=== PATIENT | male | born 1940 | race Caucasian/White ===

== ENCOUNTER 2017-04-07 13:44 | Inpatient (IN) ==
[2017-04-07 14:24] LABS: Bilirubin,Urine Negative (Negative); Blood,Urine Negative (Negative); Clarity,Urine Clear (Clear); Color,Urine Yellow (Yellow); Glucose,Urine (UA) Normal (Normal); Ketones,Urine Negative (Negative); Leukocyte Esterase,Urine Small (Negative); Nitrite,Urine Negative (Negative); Protein,Urine Negative (Neg-Trace); Specific Gravity,Urine 1.019 (1.010-1.025); Urobilinogen,Urine Normal (Normal)
[2017-04-07 14:27] LABS: Bacteria,Urine None Seen per hpf (None-Few); Hyaline Casts,Urine None Seen per lpf (None-Few); RBC,Urine 0-3 per hpf (0-3); Squamous Epithelial Cell,Urine Few per lpf (None-Few)
[2017-04-07] MEDS ORDERED: 0.9 % Sodium Chloride 1,000 ML IVC ONE ×2 (14:53→16:41)
[2017-04-07 15:05] LABS: Basophils # 0.1 K/mcL (0.0-0.2); Basophils % 0.5 %; Eosinophils # 0.2 K/mcL (0.0-0.6); Eosinophils % 1.6 %; Hematocrit 42.8 % (37.5-50.1); Hemoglobin 13.9 g/dL (12.9-16.9); Immature Platelets 3.5 % (1.1-6.1); Lymphocytes # 1.2 K/mcL (0.6-4.6); Lymphocytes % 13.1 %; Mean Corpuscular HGB Conc 32.5 g/dL (31.6-35.5); Mean Corpuscular Hemoglobin 29.5 pg (28.0-33.3); Mean Corpuscular Volume 90.9 fL (83.0-100.0); Mean Platelet Volume 9.9 fL (9.4-12.4); Monocytes % 10.2 %; Neutrophils # 6.7 K/mcL (1.6-8.9); Platelet Count 324 K/mcL (140-400); Red Blood Count 4.71 M/mcL (4.19-5.50); Red Cell Distribution Width 13.5 % (11.5-14.5); Segmented Neutrophils % 72.6 %
[2017-04-07 15:20] LABS: Alanine Aminotransferase 55 Units/L (7-52); Albumin 4.1 g/dL (3.5-5.7); Albumin/Globulin Ratio 1.5 (1.1-2.2); Alkaline Phosphatase 91 Units/L (34-104); Aspartate Amino Transferase 52 Units/L (13-39); BUN/Creatinine Ratio 16 (6-26); Bilirubin,Direct 0.1 mg/dL (0.0-0.2); Bilirubin,Indirect 0.3 mg/dL (0.0-1.2); Bilirubin,Total 0.4 mg/dL (0.3-1.0); Blood Urea Nitrogen 15 mg/dL (8-23); Calcium 9.9 mg/dL (8.6-10.3); Carbon Dioxide 24 mEq/L (23-29); Chloride 105 mEq/L (98-107); Globulin 2.8 g/dL (2.4-3.5); Glucose 109 mg/dL (70-105); Lipase 35 Units/L (11-82); Osmolality,Calculated 283 (280-300); Potassium 4.4 mEq/L (3.5-5.1); Sodium 136 mEq/L (136-145); Total Protein 6.9 g/dL (6.4-8.9); eGFR For African Americans > 60 (> 60); eGFR For Non-African Americans > 60 (> 60)
--- NOTE | 2017-04-07 15:22 | Emergency Department Note ---
START Narrative - START START: I examined this patient and my medical decision-making was reviewed with the emergency medicine resident. I agree with the documented findings, disposition and treatment plan as described except to the extent set forth below. Patient seen with emergency medicine resident Dr. NICHOLE CHRISTIAN, Please see a copy of his note for details of the H&P, ED evaluation, management and disposition. I have independently evaluated the patient and confirmed appropriate portions of the history and physical exam. Briefly: 76-year-old male history of intraparenchymal renal mass being treated for pyelonephritis was initially on Bactrim cultures came back that it was resistant to what they tried Macrobid but his symptoms are worsening with chills and malaise. Patient will be worked up for OUTPT FAILURE pyelonephritis IV fluids IV antibiotics admission anticipated. Disposition pending
--- NOTE | 2017-04-07 15:25 | Emergency Department Note ---
Disposition Clinical Impression: Pyelonephritis, Renal abscess Disposition: Admitted As Inpatient Condition: Fair Referrals: Carlos Trevino MD [Primary Care Provider] - Forms: ED Satisfaction Letter, Work/School Release Time of Disposition: 17:12 Abdominal Pain HPI - General Chief Complaint: ED Abdominal Pain Stated Complaint: ABD/R flank pain Time Seen by Provider: 04/07/17 15:24 Source: patient Mode of arrival: ambulatory Limitations: no limitations Nursing Notes Reviewed: Yes Vital Signs Reviewed: Yes - History of Present Illness HPI Narrative: 76-year-old male presents complaining of right flank pain. Patient was treated for a UTI with possible pyelonephritis one week ago, he had a CAT scan showed new 3.7 infrarenal abdominal aortic aneurysms nonruptured, and 3 cm right iliac artery aneurysm that were stable, patient also was found to have a small mass in his right kidney that was possible pyelonephritis, she was started initially on Bactrim that he took for 3 or 4 days he started feeling better then was switched to Macrobid as the Escherichia coli was sensitive to Macrobid but not Bactrim. Patient states that he has been having 7 out of 10 pain up to 8 out of 10 twinges of pain when he moves. When he takes a deep breath. Patient reports no hematemesis, hemoptysis, hematochezia. Patient denies hematuria but has had some dysuria and frequency. States his pain is currently a 0 out of 10 but is up to a 10 out of 10 if he moves Pt Subjective Complaint: abdominal pain Onset (ago): day(s) Consistency: intermittent Location: R flank Pain Severity: none, now resolved Pain Scale: 0 Quality: cramping Radiation: none Improves with: nothing Worsens with: nothing Associated symptoms: Reports: nausea, fever, chills. Denies: vomiting, diarrhea , constipation, dysuria, hematemesis, hematuria - Related Data Allergies Allergy/AdvReac Type Severity Reaction Status Date / Time quinine [From Qualaquin] AdvReac Muscle Pain Verified 04/07/17 14:05 All systems ED: reviewed and negative except as stated. Review of Systems: As Per HPI Constitutional: Reports: as per HPI, fever, chills Eyes: Denies: eye pain ENT ED: Denies: ear pain Cardiovascular: Denies: chest pain, palpitations Respiratory: Denies: cough, dyspnea Gastrointestinal: Reports: abdominal pain, nausea. Denies: hematemesis, melena Genitourinary: Reports: as per HPI, urgency, dysuria. Denies: frequency, hematuria Musculoskeletal: Denies: back pain Integumentary: Denies: rash Neurological: Denies: headache Abdominal Pain PMH - Past Medical History Medical history: Reports: COPD, hyperlipidemia, hypertension, other Male Surgical History: Reports: Adenoidectomy, herniorrhaphy, prostatectomy, Tonsillectomy Psychiatric history: Reports: no psych history - Social History Smoking status: Never smoker Alcohol use: Reports: heavy Drug use: Reports: none Physical Exam Constitutional: Borderline tachycardia, elderly male in no acute distress Eyes: PERRLA, sclera anicteric ENT & Mouth: MMM Neck: normal inspection, neck is supple Resp: CTA bilaterally, no resp distress CV: RRR, rate of 100 no m/g/r GI: normal inspection, soft, tenderness to palpation right lower quadrant. no guarding or rigidity Back: Right CVA tenderness. Neuro: A&O3, CNII-XII grossly intact, ZELAYA Skin: on limited exam, skin intact with no rashes or lesions - General Limitations: no limitations General appearance: alert Course Course Narrative: 76-year-old male with right upper quadrant pain and right flank . The patient has worsening symptoms, [place] a week I do think that it is indicated to repeat a CT scan, as worsening pain there is questionable mass, also questionable stable abdominal aortic aneurysm and right iliac aneurysm - Reevaluation(s) Reevaluation #1: Patient is evidence of right-sided renal cyst, with stable vital signs, but is basically failed Macrobid and Bactrim, has a worsening pain, he gets indicated at this time to start him on ceftriaxone, Escherichia coli pyelonephritis admitted to Dr Augustine Time: 17:11 Vital Signs Temperature 98.4 F 04/07/17 14:00 Pulse Rate 100 04/07/17 14:00 Respiratory Rate 18 04/07/17 14:00 Blood Pressure 112/71 04/07/17 14:00 O2 Sat by Pulse Oximetry 99 04/07/17 14:00 Temperature 98.4 F 04/07/17 14:00 Pulse Rate 95 04/07/17 15:31 Respiratory Rate 18 04/07/17 15:31 Blood Pressure 121/75 04/07/17 15:31 O2 Sat by Pulse Oximetry 93 04/07/17 15:31 Oxygen Delivery Oxygen Delivery Room Air Abdominal Pain - Differential Diagnosis Differential Diagnosis: Likely: abdominal pain non-specific, acute appendicitis , constipation, diverticulitis, diverticulosis - Medical Records Medical records reviewed: Yes I reviewed the patient's medical records. - Lab Data Lab results reviewed: Yes I reviewed the patient's lab results. Result diagrams: 04/07/17 14:55 04/07/17 14:55 Lab Results 04/07/17 04/07/17 04/07/17 Range/Units 14:11 14:55 14:55 WBC 9.3 (4.3-11.1) K/mcL RBC 4.71 (4.19-5.50) M/mcL Hgb 13.9 (12.9-16.9) g/dL Hct 42.8 (37.5-50.1) % MCV 90.9 (83.0-100.0) fL MCH 29.5 (28.0-33.3) pg MCHC 32.5 (31.6-35.5) g/dL RDW 13.5 (11.5-14.5) % Plt Count 324 (140-400) K/mcL MPV 9.9 (9.4-12.4) fL Immature Gran % 2.0 (0-4) % Seg Neutrophils % 72.6 % Lymphocytes % 13.1 % Monocytes % 10.2 % Eosinophils % 1.6 % Basophils % 0.5 % Neutrophils # 6.7 (1.6-8.9) K/mcL Lymphocytes # 1.2 (0.6-4.6) K/mcL Monocytes # 1.0 (0.0-1.3) K/mcL Eosinophils # 0.2 (0.0-0.6) K/mcL Basophils # 0.1 (0.0-0.2) K/mcL Immature Plt Fraction 3.5 (1.1-6.1) % Sodium 136 (136-145) mEq/L Potassium 4.4 (3.5-5.1) mEq/L Chloride 105 (98-107) mEq/L Carbon Dioxide 24 (23-29) mEq/L BUN 15 (8-23) mg/dL Creatinine 0.93 (0.70-1.30) mg/dL Est GFR ( Amer) > 60 (> 60) Est GFR (Non-Af Amer) > 60 (> 60) BUN/Creatinine Ratio 16 (6-26) Glucose 109 H (70-105) mg/dL Calculated Osmolality 283 (280-300) Calcium 9.9 (8.6-10.3) mg/dL Total Bilirubin 0.4 (0.3-1.0) mg/dL Direct Bilirubin 0.1 (0.0-0.2) mg/dL Indirect Bilirubin 0.3 (0.0-1.2) mg/dL AST 52 H (13-39) Units/L ALT 55 H (7-52) Units/L Alkaline Phosphatase 91 (34-104) Units/L Serum Total Protein 6.9 (6.4-8.9) g/dL Albumin 4.1 (3.5-5.7) g/dL Globulin 2.8 (2.4-3.5) g/dL Albumin/Globulin Ratio 1.5 (1.1-2.2) Lipase 35 (11-82) Units/L Urine Color Yellow (Yellow) Urine Clarity Clear (Clear) Urine pH 6.0 (5.0-8.0) pH Units Ur Specific [place] 1.019 (1.010-1.025) Urine Protein Negative (Neg-Trace) mg/dL Urine Glucose (UA) Normal (Normal) mg/dL Urine Ketones Negative (Negative) mg/dL Urine Blood Negative (Negative) Urine Nitrite Negative (Negative) Urine Bilirubin Negative (Negative) Urine Urobilinogen Normal (Normal) mg/dL Ur Leukocyte Esterase Small H (Negative) Urine Microscopic RBC 0-3 (0-3) per hpf Urine Microscopic WBC 3-5 H (0-3) per hpf Ur Squamous Epith Cells Few (None-Few) per lpf Urine Bacteria None Seen (None-Few) per hpf Hyaline Casts None Seen (None-Few) per lpf Ur Culture Indicated? YES A (NO) - Radiology Data Radiology results reviewed: Yes I reviewed the patient's radiology results. Abdomen/Pelvis CT 04/07/17 15:01 IMPRESSION: Early right renal abscess associated with ascending urinary tract infection. Eccentric abdominal aortic and right common iliac artery aneurysms. RECOMMENDATIONS: Consider nonemergent vascular surgery evaluation due to the slightly unusual morphology of the aneurysms. D/ / 04/07/2017 16:13:04 Julian Garcia MD / aman Interpreting Provider: Julian Garcia MD
[2017-04-07] MEDS ORDERED: Ketorolac 15 MG/ML VIAL IVP ONE (17:13)
[2017-04-07] MEDS ORDERED: Ondansetron 4 MG/2 ML VIAL IVP ONE (17:13)
[2017-04-07] MEDS ORDERED: cefTRIAXone 2,000 MG in Water for inj. (sterile) 20 ML 20 ML IVP ONE (18:00)
[2017-04-07] MEDS ORDERED: Naloxone 0.4 MG/ML INJ IVP PRN (20:46)
[2017-04-07] MEDS ORDERED: Ipratropium/Albuterol Neb 3 ML IH PRN (20:50)
--- NOTE | 2017-04-07 21:45 | Internal Med History&Physical ---
Date of Encounter: 04/07/17 Time of Encounter: 19:00 Assessment and Plan (1) HTN (hypertension) Current visit: Yes Status: Acute Closely monitor BP, assume home meds after verification. Qualifiers: Hypertension type: essential hypertension Qualified Code(s): I10 - Essential (primary) hypertension (2) COPD (chronic obstructive pulmonary disease) Current visit: Yes Status: Acute No signs of exacerbation. Cont symbicort, duoneb PRN Qualifiers: COPD type: emphysema Emphysema type: unspecified Qualified Code(s): J43.9 - Emphysema, unspecified (3) DVT prophylaxis Current visit: Yes Status: Acute Heparin SC (4) Pyelonephritis Current visit: Yes Status: Acute Pt has Rt flank pain with CVAT positive, consider Rt pyelonephritis. - Cont rocephin IV, f/u urine culture. (5) Renal abscess Current visit: Yes Status: Acute Cont abx, urology consult on board, recommedation will be followed. (6) Iliac artery aneurysm Current visit: Yes Status: Acute Incidentally found by CT, non-urgent vascular consult or outpatient vascular f/u , defer to dayshift for further management. Internal Medicine - H&P: HPI Chief complaint: Abd pain Admitted From: Home Plans for Post Hospital Care: Home History of present illness: Mr. Lux is a 76 year old male with Hx of COPD, gout, HTN, HLD, prostate Cancer s/p prostatectomy present to ER for abd pain for 8 days. Pt said pain located on rt abd, with low fever 100.2F. He was considered apendicitis earlier but CT abd ruled it out but found UTI. He was treated with po Abx but the right flank pain is getting worse today. Pt denies nausea or diarrhea. He denies dysuria, burning, or urgency for urination. In ER, CT abd again shows UTI and finds early right renal abscess. Urology was consulted by ER, recommend admit pt , treat with rocephin, and urology will follow up. Past Med Surg Social Fam HX - Past Medical History Medical history: COPD, hyperlipidemia, hypertension, other Psychiatric history: no psych history - Past Surgical History Surgical History: prostatectomy - Social History Smoking Status: Current every day smoker Smokeless Tobacco Status: No Alcohol use: heavy Drug use: none - Family History Father Living Status: Age at : 58 Cause of : cardiac arrest Hx Family Cardiac Disorders: Yes Hx Family Respiratory Disorders: Yes Hx Family Cancer: No Hx Family GI Disorders: No Hx Family Genitourinary Disorders: No Hx Family Endocrine Disorder: No Hx Family Musculoskeletal Disorders: No Hx Family Neuromuscular Disorders: No Hx Family Neurologic Disorders: No Hx Family HEENT Disorders: No Hx Family Autoimmune Disorders: No Hx Family Reproductive Disorders: No Hx Family Psychosocial Disorders: No Hx Family Medical Disorders: No Internal Medicine - H&P: Meds 3 Allergy/AdvReac Type Severity Reaction Status Date / Time quinine [From Qualaquin] AdvReac Muscle Pain Verified 04/07/17 14:05 All Systems PM: A 10-system review of systems was performed and is negative for pertinent findings except as documented above in the HPI. - Constitutional Constitutional: no chills, no fever(s), no night sweats - EENT Eyes: no change in vision, no discharge, no pain, no photophobia Ears: no ear discharge, no ear pain, no tinnitus Nose, mouth and throat: no dysphagia, no nasal discharge, no neck pain, no sore throat - Cardiovascular Cardiovascular ROS IM: no chest pain, no diaphoresis, no dyspnea, no lightheadedness, no palpitations, no syncope - Respiratory Respiratory: no cough, no dyspnea, no wheezing, no excessive phlegm production - Gastrointestinal Gastrointestinal: no abdominal pain, no diarrhea, no hematemesis, no hematochezia, no melena, no nausea, no vomiting - Musculoskeletal Musculoskeletal ROS IM: no numbness, no tingling - Integumentary Integumentary IM: no rash, no unusual bruising - Neurological Neurological ROS: no confusion, no convulsions, no focal weakness, no numbness, no tingling, no tremor(s) - Hematologic/Lymphatic Hematologic/Lymphatic: no easy bruising - Constitutional Vitals: Temp Pulse Resp BP Pulse Ox 98.3 F 90 14 136/82 95 04/07/17 19:49 04/07/17 19:49 04/07/17 19:49 04/07/17 19:49 04/07/17 19:49 General appearance: Present: A&O X 3, no acute distress, answers questions appropriately - Head Head exam: Present: atraumatic, normocephalic - Eye Eye exam: Present: PERRL, conjuntiva pink, sclera anicteric Pupils: Present: PERRL - Neck Neck exam general surgery: Present: supple, trachea midline. Absent: lymphadenopathy - Respiratory Respiratory exam: Present: CTAB. Absent: accessory muscle use, rales, rhonchi, wheezes - Cardiovascular Cardiovascular exam: Present: RRR, +S1, +S2. Absent: diastolic murmur, gallop, rubs, systolic murmur - GI/Abdominal GI/Abdominal exam: Present: normal bowel sounds, soft, no peritoneal signs. Absent: distended, tenderness Additional comments: CVAT positive on right side - Extremities Exam Extremities exam: Present: warm, radial pulses palpable and symmetrical. Absent : calf tenderness, cyanotic, pedal edema - Neurological Exam Neurological exam: Present: CN II-XII intact, oriented X3, no focal deficits. Absent: pronater drift, facial droop, speech deficit - Skin Skin exam: Present: dry, intact Internal Med - H&P Results - Labs CBC & Chem 7: 04/07/17 14:55 04/07/17 14:55
[2017-04-07] MEDS ORDERED: Budesonide/Formoterol 160/4.5 MDI IH SCH (22:00)
[2017-04-08] MEDS: Acetaminophen 325 MG TABLET PO PRN ×3 (01:19→22:27)
[2017-04-08] MEDS ORDERED: Saline Nasal Spray 44 ML BOTTLE NS PRN (01:28)
[2017-04-08] MEDS: *HR* Heparin 5,000 UNIT/ML VIAL SQ SCH ×2 (06:21→17:21)
[2017-04-08 07:01] LABS: Basophils # 0.1 K/mcL (0.0-0.2); Eosinophils # 0.3 K/mcL (0.0-0.6); Eosinophils % 3.7 %; Hemoglobin 12.5 g/dL (12.9-16.9); Immature Granulocytes % 2.3 % (0-4); Lymphocytes # 1.7 K/mcL (0.6-4.6); Lymphocytes % 21.1 %; Mean Corpuscular HGB Conc 32.1 g/dL (31.6-35.5); Mean Corpuscular Hemoglobin 29.9 pg (28.0-33.3); Mean Corpuscular Volume 93.3 fL (83.0-100.0); Mean Platelet Volume 10.3 fL (9.4-12.4); Monocytes # 1.1 K/mcL (0.0-1.3); Monocytes % 13.5 %; Neutrophils # 4.8 K/mcL (1.6-8.9); Platelet Count 289 K/mcL (140-400); Red Blood Count 4.18 M/mcL (4.19-5.50); Red Cell Distribution Width 13.6 % (11.5-14.5); Segmented Neutrophils % 58.4 %
[2017-04-08 07:07] LABS: INR 1.1; Prothrombin Time 11.8 Seconds (9.4-12.1)
[2017-04-08 07:16] LABS: BUN/Creatinine Ratio 13 (6-26); Blood Urea Nitrogen 11 mg/dL (8-23); Carbon Dioxide 24 mEq/L (23-29); Chloride 108 mEq/L (98-107); Glucose 89 mg/dL (70-105); Magnesium 2.1 mg/dL (1.6-2.6); Osmolality,Calculated 287 (280-300); Potassium 4.2 mEq/L (3.5-5.1); Sodium 139 mEq/L (136-145); eGFR For African Americans > 60 (> 60); eGFR For Non-African Americans > 60 (> 60)
--- NOTE | 2017-04-08 07:21 | Urology - Consult Note ---
Date of Encounter: 04/08/17 Time of Encounter: 07:17 - Assessment and Plan (1) Renal abscess Current Visit: Yes Status: Acute Assessment and plan: 76-year-old man with a history of a urinary tract infection and a right renal abscess. I reviewed the CT scan. This abscess is fairly small. I do not think it will be amenable to a drain placement, but interventional radiology may be able to aspirate the abscess to assist with repeat cultures. An INR was normal. I discussed the procedure with the patient. I also recommend proceeding with an infectious disease consultation to determine length of time for IV antibiotic treatment. I answered all his questions. Urology will follow along. Urology CN:HPI Consult date: 04/08/17 Reason for consult Urology: Other (Right renal abscess) History of present illness: 76-year-old man was admitted for a urinary tract infection and right flank pain. In workup he was noted to have a right renal abscess. He had been on oral antibiotic, but has been changed over to IV antibiotics. His flank pain started in the last 2-3 days. It is located on the right side. It radiates anteriorly. He describes the pain as being sharp. He has a history of prostate cancer and is status post robotic-assisted radical prostatectomy from 2016. His PSA in March 2017 was undetectable. He still has some urinary incontinence. Past Med Surg Social Fam HX - Past Medical History Medical history: COPD, hyperlipidemia, hypertension, other Psychiatric history: no psych history - Past Surgical History Surgical History: prostatectomy - Social History Smoking Status: Current every day smoker Smokeless Tobacco Status: No Alcohol use: heavy Drug use: none - Family History Father Living Status: Age at : 58 Cause of : cardiac arrest Hx Family Cardiac Disorders: Yes Hx Family Respiratory Disorders: Yes Hx Family Cancer: No Hx Family GI Disorders: No Hx Family Genitourinary Disorders: No Hx Family Endocrine Disorder: No Hx Family Musculoskeletal Disorders: No Hx Family Neuromuscular Disorders: No Hx Family Neurologic Disorders: No Hx Family HEENT Disorders: No Hx Family Autoimmune Disorders: No Hx Family Reproductive Disorders: No Hx Family Psychosocial Disorders: No Hx Family Medical Disorders: No Medications and Allergies Allopurinol [Zyloprim 300 MG] 300 mg PO DAILY 04/07/17 [History] Amlodipine Besylate 2.5 mg PO DAILY 04/07/17 [History] Budesonide/Formoterol 160/4.5 [Symbicort 160/4.5] 2 puff IH BIDR 04/07/17 [ History] Losartan/Hydrochlorothiazide [Losartan-Hctz 100-12.5 mg Tab] 04/07/17 [History] Ranitidine HCl [Heartburn Relief] 150 mg PO DAILY 04/07/17 [History] Simvastatin [Zocor] 20 mg PO HS 04/07/17 [History] Zolpidem [Ambien] 5 mg PO HS 04/07/17 [History] 3 Allergy/AdvReac Type Severity Reaction Status Date / Time quinine [From Qualaquin] AdvReac Muscle Pain Verified 04/07/17 14:05 Review of Systems - Constitutional no chills, no fever(s) - EENT Nose, mouth and throat: no dizziness - Cardiovascular no chest pain - Respiratory no dyspnea - Gastrointestinal no nausea, no vomiting - Genitourinary flank pain, no hematuria - Musculoskeletal no back pain - Integumentary no erythema, no rash - Neurological no weakness - Psychiatric no suicidal ideation - Hematologic/Lymphatic no easy bleeding - Allergic/Immunologic no wheezing Exam Initial Vital Signs Temp Pulse Resp BP Pulse Ox 98.4 F 100 18 112/71 99 04/07/17 14:00 04/07/17 14:00 04/07/17 14:00 04/07/17 14:00 04/07/17 14:00 - General physical appearance Present: well developed, well nourished, no distress - Eyes Absent: icteric - ENT Present: normal nares - Neck Present: trachea midline - Respiratory Present: normal respiratory effort - Cardiovascular Cardiovascular exam IM: RRR - Abdomen Abdomen: Present: soft - Genitourinary normal penis with no external lesions - Integumentary Present: no rash - Neurologic Present: normal coordination - Musculoskeletal Present: other (No edema) Urology Results - Labs 04/08/17 05:42 04/08/17 05:42 Abnormal lab results RBC 4.18 M/mcL (4.19-5.50) L 04/08/17 05:42 Hgb 12.5 g/dL (12.9-16.9) L 04/08/17 05:42 Chloride 108 mEq/L (98-107) H 04/08/17 05:42 AST 52 Units/L (13-39) H 04/07/17 14:55 ALT 55 Units/L (7-52) H 04/07/17 14:55 Ur Leukocyte Esterase Small (Negative) H 04/07/17 14:11 Urine Microscopic WBC 3-5 per hpf (0-3) H 04/07/17 14:11 Ur Culture Indicated? YES (NO) A 04/07/17 14:11 Diabetes panel 04/08/17 Range/Units 05:42 Sodium 139 (136-145) mEq/L Potassium 4.2 (3.5-5.1) mEq/L Chloride 108 H (98-107) mEq/L Carbon Dioxide 24 (23-29) mEq/L BUN 11 (8-23) mg/dL Creatinine 0.83 (0.70-1.30) mg/dL Glucose 89 (70-105) mg/dL Calcium 9.0 (8.6-10.3) mg/dL Calcium panel 04/08/17 Range/Units 05:42 Calcium 9.0 (8.6-10.3) mg/dL Pituitary panel 04/08/17 Range/Units 05:42 Sodium 139 (136-145) mEq/L Potassium 4.2 (3.5-5.1) mEq/L Chloride 108 H (98-107) mEq/L Carbon Dioxide 24 (23-29) mEq/L BUN 11 (8-23) mg/dL Creatinine 0.83 (0.70-1.30) mg/dL Glucose 89 (70-105) mg/dL Calcium 9.0 (8.6-10.3) mg/dL Adrenal panel 04/08/17 Range/Units 05:42 Sodium 139 (136-145) mEq/L Potassium 4.2 (3.5-5.1) mEq/L Chloride 108 H (98-107) mEq/L Carbon Dioxide 24 (23-29) mEq/L BUN 11 (8-23) mg/dL Creatinine 0.83 (0.70-1.30) mg/dL Glucose 89 (70-105) mg/dL Calcium 9.0 (8.6-10.3) mg/dL All other labs normal. - Imaging CT scan - abdomen: report reviewed, image reviewed CT scan - pelvis: report reviewed, image reviewed Consult Discharge Plan - Plan Referrals: Carlos Trevino MD [Primary Care Provider] -
[2017-04-08] MEDS: Budesonide/Formoterol 160/4.5 MDI IH SCH ×2 (07:48→20:45)
--- NOTE | 2017-04-08 09:10 | IR Consult Note ---
Date of Encounter: 04/08/17 Time of Encounter: 09:06 Assessment and Plan (1) Renal abscess Current Visit: Yes Status: Acute 76 yo gentleman with recent UTI and a tiny renal abscess. Personal review of recent CT exams demonstrates a <1 cm hypoenchancing region in the right kidney which could represent an early abscess, and is unchaged between 04/02 and 04/07. Given its small size, I would recommend medial management at this point, particularly as the patient was recently switched to IV abx. If symptoms worsen or the patient develops signs of sepsis, aspiration could possibly be attempted. Thank you for the consult. Consult date: 04/08/17 Ordering Clinician: Shan Osborn Physicians: Gregg Sears MD History of present illness: 76 yo gentleman with hx prostate cancer s/p prostatectomy, who was recently diagnosed with a UTI and started on oral abx. He p/w 2-3 days increasing right flank pain. Consult Comment: Thank you for the consult. Call [facility] with questions or concerns. Past Med Surg Social Fam HX - Past Medical History Medical history: COPD, hyperlipidemia, hypertension, other Psychiatric history: no psych history - Past Surgical History Surgical History: prostatectomy - Social History Smoking Status: Current every day smoker Smokeless Tobacco Status: No Alcohol use: heavy Drug use: none - Family History Father Living Status: Age at : 58 Cause of : cardiac arrest Hx Family Cardiac Disorders: Yes Hx Family Respiratory Disorders: Yes Hx Family Cancer: No Hx Family GI Disorders: No Hx Family Genitourinary Disorders: No Hx Family Endocrine Disorder: No Hx Family Musculoskeletal Disorders: No Hx Family Neuromuscular Disorders: No Hx Family Neurologic Disorders: No Hx Family HEENT Disorders: No Hx Family Autoimmune Disorders: No Hx Family Reproductive Disorders: No Hx Family Psychosocial Disorders: No Hx Family Medical Disorders: No Medications and Allergies Allopurinol [Zyloprim 300 MG] 300 mg PO DAILY 04/07/17 [History] Amlodipine Besylate 2.5 mg PO DAILY 04/07/17 [History] Budesonide/Formoterol 160/4.5 [Symbicort 160/4.5] 2 puff IH BIDR 04/07/17 [ History] Ranitidine HCl [Heartburn Relief] 150 mg PO DAILY 04/07/17 [History] Simvastatin [Zocor] 20 mg PO HS 04/07/17 [History] Zolpidem [Ambien] 5 mg PO HS 04/07/17 [History] Losartan Potassium [Cozaar] 100 mg PO DAILY 04/08/17 [History] Nitrofurantoin Monohyd/M-Cryst [Macrobid 100 mg Capsule] 100 mg PO BID 04/08/17 [History] 3 Allergy/AdvReac Type Severity Reaction Status Date / Time quinine [From Qualaquin] AdvReac Muscle Pain Verified 04/07/17 14:05 Exam Vital Signs, Last 4 Hours Resp Pulse Ox 04/08/17 07:49 16 95 Results Reviewed 04/08/17 05:42 04/08/17 05:42 Lab Results 04/08/17 04/08/17 04/08/17 05:42 05:42 05:42 WBC 8.2 RBC 4.18 L Hgb 12.5 L Hct 39.0 MCV 93.3 MCH 29.9 MCHC 32.1 RDW 13.6 Plt Count 289 MPV 10.3 Neutrophils # 4.8 Lymphocytes # 1.7 Monocytes # 1.1 Eosinophils # 0.3 Basophils # 0.1 PT 11.8 INR 1.1 Sodium 139 Potassium 4.2 Chloride 108 H Carbon Dioxide 24 BUN 11 Creatinine 0.83 Est GFR ( Amer) > 60 Est GFR (Non-Af Amer) > 60 BUN/Creatinine Ratio 13 Glucose 89 Calcium 9.0 Magnesium 2.1 Consult Discharge Plan - Plan Referrals: Carlos Trevino MD [Primary Care Provider] -
[2017-04-08] MEDS: amLODIPine 5 MG TABLET PO SCH (09:38)
--- NOTE | 2017-04-08 14:00 | Infectious Disease Consult ---
Date of Encounter: 04/08/17 Time of Encounter: 13:55 Assessment and Plan (1) Renal abscess Status: Acute Assessment and plan: Location: Right kidney. Causative organism unclear, but likely E. coli given the recent urine culture results. Urinalysis positive for pyuria, but no bacteria. Urine culture obtained 04/02/[address] scan completed 04/07/16 showed progression of the right renal collection. IR consulted, but due to the size of the abscess, no drainage is indicated. Urology consulted and following. Continue Rocephin 2 grams IV daily. Duration of treatment depends on the clinical picture, but likely 2-4 weeks. We will continue IV antibiotics until the patient is seen in the office and we will repeat a CT scan and will switch to PO Antibiotics at that time if the abscess is resolved. Consult VAT for EPIV placement. Will need weekly CBC, BUN/Cr. Will need weekly EPIV care. Follow up with ID 04/24/17 at 0900. (2) UTI (urinary tract infection) Status: Acute Assessment and plan: Causative organism E. coli. CT scan shows bilateral perinephric stranding and findings consistent with ascending UTI. Continue antibiotics as above. Qualifiers: Qualified Code(s): N10 - Acute pyelonephritis (3) HTN (hypertension) Status: Chronic Qualifiers: Qualified Code(s): I10 - Essential (primary) hypertension (4) COPD (chronic obstructive pulmonary disease) Status: Acute Qualifiers: Qualified Code(s): J43.9 - Emphysema, unspecified Infectious Disease HPI - Data of Consult Patient: new to practice Consult date: 04/08/17 Requesting Physician: Gregg Sears MD Primary Care Provider: Carlos Trevino MD - Consult Narrative Reason for consult: Renal abscess History of present illness: Mr. Lux is a 76 year old male past medical history of COPD, hyperlipidemia, hypertension, and prostate cancer status post prostatectomy in 2016. The patient was admitted to the hospital where he 19th for pyelonephritis and renal abscess. We are consulted April 08 for antibiotic recommendations for renal abscess. , The patient is a 76-year-old male with past medical history as stated above. The patient states that about a week and a half ago he started to experience increasing right lower quadrant abdominal pain. He was seen by his PCP and had a CT scan ordered that showed no enhancements in the mid right and left kidneys with indeterminate etiology. His urinalysis was positive so he was started on oral Bactrim. He states that he started to get a little bit better, but was contacted by his PCPs office and told that his urine culture grew out bacteria that was resistant to the Bactrim and he was started on Macrobid. He states that over the course of the next 48 hours his pain started to worsen and he came to the emergency department yesterday. Upon arrival to the ER, the patient was afebrile, but he was tachycardic. His white blood cell count was normal. Lactic acid and serum creatinine were normal. He had a repeat CT the abdomen that showed an early right renal abscess with an ascending UTI. Repeat urinalysis was obtained that showed a small amount of leukocyte esterase and 3- 5 white blood cells, but no bacteria. Urine culture is pending. Blood cultures were obtained 2 sets and are pending. The patient was started on IV Rocephin and admitted to the hospital for further evaluation. Since admission, the patient has remained afebrile and hemodynamically stable. His white blood cell count is normal. Urology was consulted and recommended interventional radiology to drain the abscess. I was consulted, but states that because the renal abscesses so small it is not indicated to drain. Currently, the patient is on IV Rocephin. We've been asked to evaluate and make further recommendations. My exam today, the patient dorsal history as stated above. He states since being in the hospital doesn't feel much better. He does report subjective fevers and chills and rigors. He denies any headache or neck pain. He denies any chest pain or shortness of breath. He does report a chronic cough due to COPD. He denies any nausea or vomiting or diarrhea. He reports pain is in the right lower quadrant with radiation around to the right flank that seems to be worse depending on his position and movement. He denies any dysuria or urinary frequency or hematuria. Doesn't have much of an appetite. He denies any oral thrush or skin lesions. The patient lives at home with his . The patient denies tobacco or illicit drug use. He states that he typically has cocktails before dinner every night. He is a retired rescue worker. He reports that he traveled out of the country in January when he took a cruise to [place]. CC: Gregg Sears MD Past Med Surg Social Fam HX - Past Medical History Attestation: Yes The following information was validated with the patient. Source: patient, old records reviewed, nursing notes reviewed Medical history: COPD, hyperlipidemia, hypertension, other Psychiatric history: no psych history - Past Surgical History Surgical History: herniorrhaphy, prostatectomy, other (Tonsillectomy/ adenoidectomy) - Social History Smoking Status: Former smoker Smokeless Tobacco Status: No Alcohol use: heavy Drug use: none Occupational status: retired Current living situation: Home, With Family Activity Level: Independent ambulation Recent Out of Country Travel Within the Last 8 Weeks: No Exposure or Possible Exposure to Illness During Travel: No - Family History Father Living Status: Age at : 58 Cause of : cardiac arrest Hx Family Cardiac Disorders: Yes Hx Family Respiratory Disorders: Yes Hx Family Cancer: No Hx Family GI Disorders: No Hx Family Genitourinary Disorders: No Hx Family Endocrine Disorder: No Hx Family Musculoskeletal Disorders: No Hx Family Neuromuscular Disorders: No Hx Family Neurologic Disorders: No Hx Family HEENT Disorders: No Hx Family Autoimmune Disorders: No Hx Family Reproductive Disorders: No Hx Family Psychosocial Disorders: No Hx Family Medical Disorders: No Infectious Disease-CN:Meds Allopurinol [Zyloprim 300 MG] 300 mg PO DAILY 04/07/17 [History] Amlodipine Besylate 2.5 mg PO DAILY 04/07/17 [History] Budesonide/Formoterol 160/4.5 [Symbicort 160/4.5] 2 puff IH BIDR 04/07/17 [ History] Ranitidine HCl [Heartburn Relief] 150 mg PO DAILY 04/07/17 [History] Simvastatin [Zocor] 20 mg PO HS 04/07/17 [History] Zolpidem [Ambien] 5 mg PO HS 04/07/17 [History] Losartan Potassium [Cozaar] 100 mg PO DAILY 04/08/17 [History] Nitrofurantoin Monohyd/M-Cryst [Macrobid 100 mg Capsule] 100 mg PO BID 04/08/17 [History] 3 Allergy/AdvReac Type Severity Reaction Status Date / Time quinine [From Qualaquin] AdvReac Muscle Pain Verified 04/07/17 14:05 Exam - Constitutional Vitals: Temp Pulse Resp BP Pulse Ox 98.1 F 89 18 124/79 93 04/08/17 10:41 04/08/17 10:41 04/08/17 10:41 04/08/17 10:41 04/08/17 10:41 General appearance: average body habitus, cooperative, no acute distress - Head Head exam: Present: atraumatic, normal inspection, normocephalic - Eye Eye exam: Present: EOMI, normal appearance, PERRL Pupils: Present: normal accommodation - ENT ENT exam: Present: mucous membranes moist - Neck Neck exam: Present: normal inspection - Respiratory Respiratory exam: Present: CTAB. Absent: rales, respiratory distress, rhonchi, wheezes - Cardiovascular Cardiovascular exam: Present: RRR, +S1, +S2 - GI/Abdominal GI/Abdominal exam: Present: normal bowel sounds, soft, tenderness (RLQ). Absent : distended - Extremities Exam Extremities exam: Present: normal inspection. Absent: joint swelling, pedal edema, tenderness - Back Exam Back exam: Present: CVA tenderness (R). Absent: CVA tenderness (L) - Neurological Exam Neurological exam: Present: alert, oriented X3, no focal deficits - Psychiatric Psychiatric exam: Present: normal affect, normal mood - Skin Skin exam: Present: dry, intact, normal color, warm Infectious Disease CN: Results - Labs CBC & Chem 7: 04/08/17 05:42 04/08/17 05:42 Consult Discharge Plan - Plan Referrals: Carlos Trevino MD [Primary Care Provider] - Renée Butcher CNP [Advanced Practice Nurse] - 04/24/17 9:00 am - Attending Attestation I examined this patient and my medical decision-making was reviewed with the Resident Physician. I agree with the documented findings, disposition and treatment plan as described except to the extent set forth below. This is an addendum to original report dictated by Renée Butcher CNP. Please refer to Renée's note for full detail. Patient is a 76-year-old gentleman who was in the usual state of health came to [place] on 04/07/2017 complaining of right lower quadrant and flank pain. Apparently patient was seen by speech. On 04/02/2017 and was told he has pyelonephritis with Escherichia coli and was given Macrobid. Patient didn't clinically worse he had more pain on Saturday so he decided to come to the MRSA department for evaluation. In the ED patient had one SIRS criteria. Patient had no fever. Patient had a CT abdomen pelvis which revealed the right kidney abscess that was about 1.5 cm in diameter. Patient was evaluated by urology and they recommended IR to evaluate. Interventional radiology evaluated the patient and thought the abscess is too small to drain. Currently patient comfortable lying in bed. He was frustrated earlier because he apparently received too many mixed messages he tells me. But, appropriate pleasant and answered all my questions. His review of systems physical exam is really unremarkable right now. Assessment and plan: For the right kidney abscess that is about centimeter in diameter the causative organism is likely Escherichia coli based on previous urine culture. The Escherichia coli is resistant to 3 drugs including Bactrim, Zosyn and ampicillin and ampicillin sulbactam. We will treat the patient with Rocephin 2 g IV every [address] abdomen and pelvis in 2 weeks and based on that will decide if we'll continue with further IV antibiotics were switched to orals we'll stop altogether. Patient will need are powerglide. While on antibiotic he will need CBC and a BMP weekly I explained to the patient the possible adverse reactions of antibiotics Patient to take probiotics and he wanted a prescription for it.
--- NOTE | 2017-04-08 14:52 | Internal Med Progress Note ---
Date of Encounter: 04/08/17 Time of Encounter: 14:47 - Assessment and plan (1) Pyelonephritis Current Visit: Yes Status: Acute Assessment and plan: on ceftriaxone (2) Renal abscess Current Visit: Yes Status: Acute Assessment and plan: ID is on board, too small for IR to drain contineu IV ATB, follow up with ID (3) HTN (hypertension) Current Visit: Yes Status: Chronic Assessment and plan: continue home meds Qualifiers: Hypertension type: essential hypertension Qualified Code(s): I10 - Essential (primary) hypertension (4) COPD (chronic obstructive pulmonary disease) Current Visit: Yes Status: Acute Assessment and plan: COPD stable, contineu home meds, no wheezing Qualifiers: COPD type: emphysema Emphysema type: unspecified Qualified Code(s): J43.9 - Emphysema, unspecified (5) Iliac artery aneurysm Current Visit: Yes Status: Acute Assessment and plan: will consult vascular surgery, I spoke to Dr Maradiaga (6) UTI (urinary tract infection) Current Visit: Yes Status: Acute Qualifiers: Urinary tract infection type: acute pyelonephritis Qualified Code(s): N10 - Acute pyelonephritis - Time Spent With Patient 25 - 35 minutes - Subjective Interval history: Mr. Lux is a 76 year old male with Hx of COPD, gout, HTN, HLD, prostate Cancer s/p prostatectomy present to ER for right flank pain for 8 days. Pt said pain located on rt abd, with low fever 100.2F. He was considered apendicitis earlier but CT abd ruled it out but found UTI. He was treated with po Abx but the right flank pain is getting worse for 2 days. Pt denies nausea or diarrhea. He denies dysuria, burning, or urgency for urination. In ER, CT abd again shows UTI and finds early right renal abscess. Urology was consulted by ER, recommend admit pt, treat with rocephin. Patient is doing well, he is afebrile, normal WBC, urology was consulted and they recommmended interventional radiologist to alon[facility] cervantes. Interventional radiologist to review a CT scan and did not think they can drain because the abscess is too small (less than 1 cm). they recommended to consult infections specialist for IV antibiotics ID was consulted, continue IV ceftriaxone - Constitutional Vitals: Temp Pulse Resp BP Pulse Ox 98.1 F 89 18 124/79 93 04/08/17 10:41 04/08/17 10:41 04/08/17 10:41 04/08/17 10:41 04/08/17 10:41 General appearance: Present: A&O X 3, no acute distress, answers questions appropriately Exam: CONSTITUTIONAL: patient appears as an age appropriate male in no acute distress. EYES Clear sclerae, bilateral pupils are equal, reactive to light. EMOI. RESPIRATORY: No accessory muscle use, bilateral clear to auscultation, no wheezing, no crackles/rales. CARDIOVASCULAR: Regular heart rate, normal S1 and S2, no murmurs GASTROINTESTINAL: bowel sounds present, soft, no tenderness. MUSCULOSKELETAL: Joints in normal range of motion, no clubbing, no edema, no cyanosis. Bilateral peripheral pulses 2+. NEUROLOGIC: CN II to XII are grossly intact, no focal neurological deficit. Internal Medicine: Result - Labs CBC & Chem 7: 04/08/17 05:42 04/08/17 05:42 Labs: Short CBC 04/08/17 Range/Units 05:42 WBC 8.2 (4.3-11.1) K/mcL Hgb 12.5 L (12.9-16.9) g/dL Hct 39.0 (37.5-50.1) % Plt Count 289 (140-400) K/mcL Neutrophils # 4.8 (1.6-8.9) K/mcL BMP 04/08/17 05:42 Sodium 139 Potassium 4.2 Chloride 108 H Carbon Dioxide 24 BUN 11 Creatinine 0.83 Glucose 89 Calcium 9.0 - ABG Interpretation ABG results: PT/INR, D-dimer PT 11.8 Seconds (9.4-12.1) 04/08/17 05:42 Consult Discharge Plan - Plan Referrals: Carlos Trevino MD [Primary Care Provider] -
[2017-04-08] MEDS: cefTRIAXone 2,000 MG in Water for inj. (sterile) 20 ML 20 ML IVPB SCH (17:23)
--- NOTE | 2017-04-08 20:34 | Vascular/Endovasc Consult Note ---
Date of Encounter: 04/08/17 Time of Encounter: 18:00 Assessment and Plan (1) Abdominal aortic aneurysm Current Visit: Yes Status: Chronic The pathophysiology and natural history of abdominal aortic aneurysms was discussed with the patient and all questions were answered. The patient has a 3.3cm infrarenal aortic aneurysm without signs or symptoms of rupture. he has irregular aortic calficcations. His aneurysm extends into his right common iliac artery. He was instructed to seek immediate medical attention for any signs or symptoms of acute onset abdominal, flank or back pain. Given the irregular morphology with aortic calficications, the patient will have a repeat CT in 3 months. He will follow-up in vascular clinic. Qualifiers: Presence of rupture: without rupture Qualified Code(s): I71.4 - Abdominal aortic aneurysm, without rupture (2) Tobacco abuse Current Visit: Yes Status: Acute He was counseled regarding smoking cessation. (3) HTN (hypertension) Current Visit: Yes Status: Chronic He was counseled regarding atherosclerotic risk factor reduction. Qualifiers: Hypertension type: essential hypertension Qualified Code(s): I10 - Essential (primary) hypertension (4) COPD (chronic obstructive pulmonary disease) Current Visit: Yes Status: Chronic Qualifiers: COPD type: emphysema Emphysema type: unspecified Qualified Code(s): J43.9 - Emphysema, unspecified (5) Iliac artery aneurysm Current Visit: Yes Status: Chronic (6) Pyelonephritis Current Visit: Yes Status: Chronic - History of Present Illness Consult date: 04/08/17 Requesting physician: Gregg Sears Consult reason: Abdominal aortic aneurysm Chief complaint: Right flank pain History of present illness: Mr. Lux is a 76 year old male with a history of hypertension, COPD, tobacco abuse and hyperlipidemia who presented with right flank pain. He was found to have pyelonephritis. As part of his evaluation he underwent a CT of the abdomen and pelvis. He was found to have an aortic and right iliac artery aneurysm. Vascular surgery was consulted for further evaluation. The patient reports that he was unaware of the aneurysm and denies a family history of aneurysms. He denies any left sided flank or abdominal pain. He denies chest pain or shortness of breath. Past Med Surg Social Fam HX - Past Medical History Medical history: COPD, hyperlipidemia, hypertension, other Psychiatric history: no psych history - Past Surgical History Surgical History: herniorrhaphy, prostatectomy, other (Tonsillectomy/ adenoidectomy) - Social History Smoking Status: Former smoker Smokeless Tobacco Status: No Alcohol use: heavy Drug use: none - Family History Father Living Status: Age at : 58 Cause of : cardiac arrest Hx Family Cardiac Disorders: Yes Hx Family Respiratory Disorders: Yes Hx Family Cancer: No Hx Family GI Disorders: No Hx Family Genitourinary Disorders: No Hx Family Endocrine Disorder: No Hx Family Musculoskeletal Disorders: No Hx Family Neuromuscular Disorders: No Hx Family Neurologic Disorders: No Hx Family HEENT Disorders: No Hx Family Autoimmune Disorders: No Hx Family Reproductive Disorders: No Hx Family Psychosocial Disorders: No Hx Family Medical Disorders: No Medications and Allergies Allopurinol [Zyloprim 300 MG] 300 mg PO DAILY 04/07/17 [History] Amlodipine Besylate 2.5 mg PO DAILY 04/07/17 [History] Budesonide/Formoterol 160/4.5 [Symbicort 160/4.5] 2 puff IH BIDR 04/07/17 [ History] Ranitidine HCl [Heartburn Relief] 150 mg PO DAILY 04/07/17 [History] Simvastatin [Zocor] 20 mg PO HS 04/07/17 [History] Zolpidem [Ambien] 5 mg PO HS 04/07/17 [History] Losartan Potassium [Cozaar] 100 mg PO DAILY 04/08/17 [History] Nitrofurantoin Monohyd/M-Cryst [Macrobid 100 mg Capsule] 100 mg PO BID 04/08/17 [History] 3 Allergy/AdvReac Type Severity Reaction Status Date / Time quinine [From Qualaquin] AdvReac Muscle Pain Verified 04/07/17 14:05 All Systems Review: A 10-system review of systems was performed and is negative for pertinent findings except as documented above in the HPI. Exam Vital Signs, Last 4 Hours Temp Pulse Resp BP Pulse Ox 04/08/17 20:23 98.1 F 85 14 119/87 93 General: Present: Conversant, No Apparent Distress HEENT: Present: Normocephaly, Trachea midline, Pupils equal Neck: Absent: JVD, Lymphadenopathy, Left Carotid bruit, Right Carotid bruit Cardiac: Present: Reg Rate and Rhythm, Normal S1 and S2 Lungs: Present: Normal Breath Sounds, No Wheeze, Rales, Rhonchi Neuro: Present: Alert and responsive, No focal deficits noted, Motor nerves grossly intact, Sensory nerves grossly intact Abdomen: Present: Soft, Other (right flank tenderness). Absent: Masses Vascular: Present: Normal capillary refill. Absent: Cyanosis, Edema Skin: Present: No rashes noted on visualized skin Consult Discharge Plan - Plan Referrals: Renée Butcher CNP [Advanced Practice Nurse] - 04/24/17 9:00 am Carlos Trevino MD [Primary Care Provider] -
[2017-04-09] MEDS: *HR* Heparin 5,000 UNIT/ML VIAL SQ SCH ×2 (07:04→17:28)
--- NOTE | 2017-04-09 07:24 | Urology Progress Note ---
Date of Encounter: 04/09/17 Time of Encounter: 07:21 - Assessment and Plan (1) Renal abscess Current Visit: Yes Status: Acute Assessment and plan: 76-year-old man with a right renal abscess. He is doing better today. He will require IV antibiotic for this abscess. I would have him follow up with Dr. Covington in the office in 2-4 weeks. Progress Note Narrative: 76-year-old man with pyelonephritis and a right renal abscess. He is feeling well today. He has mild right flank pain, but it only seems to be exacerbated with certain movements. Interventional radiology was consulted yesterday, and they declined to do an aspiration of the abscess. Infectious disease was counseled that in June provided recommendations for antibiotics. Objective Initial Vital Signs Temp Pulse Resp BP Pulse Ox 98.4 F 100 18 112/71 99 04/07/17 14:00 04/07/17 14:00 04/07/17 14:00 04/07/17 14:00 04/07/17 14:00 - General physical appearance Present: well developed, well nourished, no distress - Respiratory Present: normal respiratory effort - Abdomen Present: soft - Labs 04/08/17 05:42 04/08/17 05:42 Consult Discharge Plan - Plan Referrals: Renée Butcher CNP [Advanced Practice Nurse] - 04/24/17 9:00 am Carlos Trevino MD [Primary Care Provider] - Edi Covington MD [Partnered Physician] - (2-4 weeks.)
[2017-04-09] MEDS: Budesonide/Formoterol 160/4.5 MDI IH SCH (07:31)
[2017-04-09] MEDS: amLODIPine 5 MG TABLET PO SCH (08:51)
--- NOTE | 2017-04-09 11:19 | Infectious Disease Progress No ---
Date of Encounter: 04/09/17 Time of Encounter: 11:17 - Assessment and Plan (1) Renal abscess Current Visit: Yes Status: Acute Location: Right kidney. Causative organism unclear, but likely E. coli given the recent urine culture results. Urinalysis positive for pyuria, but no bacteria. Urine culture obtained 04/02/17 grew E. coli. Repeat urine culture negative. CT scan completed 04/07/16 showed progression of the right renal collection. IR consulted, but due to the size of the abscess, no drainage is indicated. Urology consulted and following. Continue Rocephin 2 grams IV daily. Duration of treatment depends on the clinical picture, but likely 2-4 weeks. We will continue IV antibiotics until the patient is seen in the office and we will repeat a CT scan and will switch to PO Antibiotics at that time if the abscess is resolved. Consult VAT for EPIV placement. Will need weekly CBC, BUN/Cr. Will need weekly EPIV care. Follow up with ID 04/24/17 at 0900. (2) UTI (urinary tract infection) Current Visit: Yes Status: Acute Causative organism E. coli. CT scan shows bilateral perinephric stranding and findings consistent with ascending UTI. Continue antibiotics as above. 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 No acute events noted overnight. Patient states that overall he feels well. States he is unsure if his abdominal pain is improved as he has not been moving around much this morning and that seems to be what exacerbates his pain. Denies any fevers or chills or rigors. Denies any chest pain, shortness of breath, or cough above baseline. Denies any nausea or vomiting or diarrhea. States he had a bowel movement yesterday. Denies urinary complaints. Continues to complain of intermittent right lower quadrant abdominal pain with radiation around to his right flank. Denies pain elsewhere. Denies oral thrush or skin lesions. Infect Dis PN-Objective Data - Labs CBC & Chem 7: 04/08/17 05:42 04/08/17 05:42 Exam - Constitutional Vitals: Temp Pulse Resp BP Pulse Ox 98.1 F 89 16 147/93 93 04/09/17 08:08 04/09/17 08:08 04/09/17 08:08 04/09/17 08:08 04/09/17 08:08 General appearance: average body habitus, cooperative, no acute distress - Head Head exam: Present: atraumatic, normal inspection, normocephalic - Eye Eye exam: Present: EOMI, normal appearance, PERRL Pupils: Present: normal accommodation - ENT ENT exam: Present: mucous membranes moist - Neck Neck exam: Present: normal inspection - Respiratory Respiratory exam: Present: CTAB. Absent: rales, respiratory distress, rhonchi, wheezes - Cardiovascular Cardiovascular exam: Present: RRR, +S1, +S2 - GI/Abdominal GI/Abdominal exam: Present: normal bowel sounds, soft, tenderness (RLQ). Absent : distended - Extremities Exam Extremities exam: Present: normal inspection. Absent: joint swelling, pedal edema, tenderness - Back Exam Back exam: Present: CVA tenderness (R). Absent: CVA tenderness (L), paraspinal tenderness, vertebral tenderness - Neurological Exam Neurological exam: Present: alert, oriented X3, no focal deficits - Psychiatric Psychiatric exam: Present: normal affect, normal mood - Skin Skin exam: Present: dry, intact, normal color, warm Consult Discharge Plan - Plan Instructions: Acute Pyelonephritis (DC) Additional Instructions: F/up with PCP in 1-2 weeks F/up with Urology in 4-6 weeks Referrals: Renée Butcher CNP [Advanced Practice Nurse] - 04/24/17 9:00 am Yana Dia CNP [Advanced Practice Nurse] - 04/11/17 10:00 am Edi Covington MD [Partnered Physician] - 05/01/17 10:45 am (2-4 weeks.) Prescriptions: cefTRIAXone [Rocephin] 2,000 mg IVPB DAILY #14 vial - Attending Attestation I examined this patient and my medical decision-making was reviewed with the Resident Physician. I agree with the documented findings, disposition and treatment plan as described except to the extent set forth below.
[2017-04-09] MEDS ORDERED: Lidocaine -MPF 1% 2 ML VIAL ID PRN (11:20)
--- NOTE | 2017-04-09 12:44 | Discharge Summary ---
- NOTES TO OUTPATIENT PROVIDER Notes to Outpatient Provider: IV antibiotics- Rocephin for pyelonephritis; f/up Q weekly CBC, BUN/Cr, on 04/16/17 Orders not resulted at time of discharge: Pending orders 04/09/17 11:20 Consult to Invasive Line Access Team [CONS] Routine 04/09/17 11:23 Consult to Invasive Line Access Team [CONS] Routine Date of Encounter: 04/09/17 Time of Encounter: 10:20 - Discharge Diagnosis (1) Renal abscess Priority: Primary Status: Acute (2) UTI (urinary tract infection) Priority: Primary Status: Acute Qualifiers: Urinary tract infection type: acute pyelonephritis Qualified Code(s): N10 - Acute pyelonephritis (3) Abdominal aortic aneurysm Priority: Secondary Status: Chronic Qualifiers: Presence of rupture: without rupture Qualified Code(s): I71.4 - Abdominal aortic aneurysm, without rupture (4) COPD (chronic obstructive pulmonary disease) Priority: Secondary Status: Chronic Qualifiers: COPD type: emphysema Emphysema type: unspecified Qualified Code(s): J43.9 - Emphysema, unspecified (5) HTN (hypertension) Priority: Secondary Status: Chronic Qualifiers: Hypertension type: essential hypertension Qualified Code(s): I10 - Essential (primary) hypertension (6) Pyelonephritis Priority: Primary Status: Acute Hospital course: Mr. Lux is a 76 year old male with the above medical problems who was admitted with right flank pain. He was treated with oral antibiotics for UTI as an outpatient prior to this admission. 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 Patient's blood and urine cultures during this admission remained negative. Previous urine culture from April 02 grew Escherichia coli, sensitive to cephalosporins. Urology was consulted, recommended possible CT-guided drainage of renal abscess by interventional radiology. However, this could not be done due to the small size of the abscess. Infectious diseases was consulted and agreed with IV Rocephin for 2 weeks. Patient is currently medically stable for discharge with outpatient follow-up with ID with plan to repeat CT abdomen to evaluate resolution of abscess. Home health services referral is being completed for home infusion of IV antibiotics. Discharge discussed with: patient - Time Spent with Patient Total time spent providing and/or coordinating discharge services: Greater than 30 minutes (45 min) - Discharge Medications Prescriptions: cefTRIAXone [Rocephin] 2,000 mg IVPB DAILY #14 vial Home Medications: Allopurinol [Zyloprim 300 MG] 300 mg PO DAILY 04/07/17 [History] Amlodipine Besylate 2.5 mg PO DAILY 04/07/17 [History] Budesonide/Formoterol 160/4.5 [Symbicort 160/4.5] 2 puff IH BIDR 04/07/17 [ History] Ranitidine HCl [Heartburn Relief] 150 mg PO DAILY 04/07/17 [History] Simvastatin [Zocor] 20 mg PO HS 04/07/17 [History] Zolpidem [Ambien] 5 mg PO HS 04/07/17 [History] Losartan Potassium [Cozaar] 100 mg PO DAILY 04/08/17 [History] Nitrofurantoin Monohyd/M-Cryst [Macrobid 100 mg Capsule] 100 mg PO BID 04/08/17 [History] cefTRIAXone [Rocephin] 2,000 mg IVPB DAILY #14 vial 04/09/17 [Rx] Allergies/Adverse Reactions: 3 Allergy/AdvReac Type Severity Reaction Status Date / Time quinine [From Qualaquin] AdvReac Muscle Pain Verified 04/07/17 14:05 Date of admission: 04/08/17 18:23 Primary care physician: Carlos Trevino MD Consults: 04/09/17 11:20 Consult to Invasive Line Access Team [CONS] Routine Reason for Consult: Rocephin x 2 weeks Line Type: EPIV PICC line indications: exterminator termite Med/Antibiotic Time Notified: 11:20 Call Completed: Yes 04/09/17 11:23 Consult to Invasive Line Access Team [CONS] Routine Reason for Consult: 2 weeks IV rocephin on D/C Line Type: EPIV Discharging clinician: Rachelle Goldstein Anticipated date of discharge: 04/09/17 - Constitutional Vitals: Temp Pulse Resp BP Pulse Ox 98.4 F 91 15 152/94 93 04/09/17 12:19 04/09/17 12:19 04/09/17 12:19 04/09/17 12:19 04/09/17 12:19 General appearance: Present: A&O X 3, no acute distress, answers questions appropriately - Cardiovascular Cardiovascular exam: Present: RRR, +S1, +S2. Absent: diastolic murmur, gallop, rubs, systolic murmur - Patient Status Disposition: Home Health Service Condition: Fair Functional capacity at discharge: independent ambulation Overall status at discharge: patient is progressing back to baseline - Ambulatory Orders Ambulatory Orders: Blood Urea Nitrogen (BUN) [CHEM] Time Frame: 1 Week, Facility: [facility], Location: Lab Complete Blood Count [HEME] Time Frame: 1 Week, Facility: [facility], Location: Lab Creatinine [CHEM] Time Frame: 1 Week, Facility: [facility], Location: Lab - Discharge Instructions Instructions: Acute Pyelonephritis (DC) Follow Up With: Renée Butcher CNP [Advanced Practice Nurse] - 04/24/17 9:00 am Yana Dia CNP [Advanced Practice Nurse] - 04/11/17 10:00 am Edi Covington MD [Partnered Physician] - 05/01/17 10:45 am (2-4 weeks.) Additional Instructions: F/up with PCP in 1-2 weeks F/up with Urology in 4-6 weeks - Diet and Activity Activity: resume usual activities as tolerated Diet: low fat, low cholesterol, low salt diet
[2017-04-09 16:12] VITALS: BP 135/85
[2017-04-09] MEDS: cefTRIAXone 2,000 MG in Water for inj. (sterile) 20 ML 20 ML IVPB SCH (17:15)
== END 2017-04-09 17:49 | disposition home health service (06) | DRG 690 ==
LOC: EMEROO 13:44 → 3ANU 13:44 → SUATTDRO 04-08 18:23
PROVIDERS: ADMIT Internal Medicine; ATTEND Internal Medicine

== ENCOUNTER 2021-01-25 16:16 | Inpatient (IN) ==
[2021-01-25] MEDS ORDERED: Isovue-370 500 ML BOTTLE IVP ONE ×2 (16:38→16:43)
[2021-01-25 17:32] LABS: Basophils % 0.4 %; Eosinophils # 0.1 K/mcL (0.0-0.6); Eosinophils % 0.5 %; Hematocrit 38.7 % (37.5-50.1); Hemoglobin 12.9 g/dL (12.9-16.9); Lymphocytes # 0.2 K/mcL (0.6-4.6); Lymphocytes % 2.5 %; Mean Corpuscular HGB Conc 33.3 g/dL (31.6-35.5); Mean Corpuscular Hemoglobin 30.2 pg (28.0-33.3); Mean Corpuscular Volume 90.6 fL (83.0-100.0); Mean Platelet Volume 11.4 fL (9.4-12.4); Monocytes # 1.3 K/mcL (0.0-1.3); Monocytes % 13.7 %; Platelet Count 156 K/mcL (140-400); Red Blood Count 4.27 M/mcL (4.19-5.50); Red Cell Distribution Width 14.5 % (11.5-14.5); Segmented Neutrophils % 81.9 %; White Blood Count 9.8 K/mcL (4.3-11.1)
[2021-01-25 17:39] LABS: INR 1.1; Prothrombin Time 11.9 Seconds (9.4-12.1)
[2021-01-25 17:41] LABS: Activated Partial Thrombo Time 31.6 Seconds (26.0-36.0)
[2021-01-25 17:42] LABS: Albumin 3.7 g/dL (3.5-5.7); Albumin/Globulin Ratio 1.6 (1.1-2.2); Bilirubin,Total 0.6 mg/dL (0.3-1.0); Calcium 9.1 mg/dL (8.6-10.3); Globulin 2.3 g/dL (2.4-3.5); Magnesium 1.7 mg/dL (1.6-2.6); Phosphorous 2.2 mg/dL (2.7-4.5); Potassium 4.2 mEq/L (3.5-5.1)
[2021-01-25] MEDS ORDERED: 0.9 % Sodium Chloride 1,000 ML IV ONE ×2 (17:53→18:41)
[2021-01-25] MEDS ORDERED: Ipratropium/Albuterol Neb 3 ML IH ONE (17:54)
[2021-01-25 17:55] LABS: Thyroid Stimulating Hormone 1.818 mcIU/mL (0.340-5.600)
[2021-01-25] MEDS ORDERED: Piperacillin/Tazobactam 3.375 GM in 0.9 % Sodium Chloride Mini Bag 100 ML IVPB ONE (18:41)
[2021-01-25 18:53] LABS: Bacteria,Urine Few per hpf (None-Few); Bilirubin,Urine Negative (Negative); Blood,Urine Small (Negative); Clarity,Urine Turbid (Clear); Color,Urine Yellow (Yellow); Glucose,Urine (UA) Normal (Normal); Ketones,Urine Negative (Negative); Leukocyte Esterase,Urine Large (Negative); Mucus,Urine Few per lpf (None-Few); Nitrite,Urine Negative (Negative); Protein,Urine 50 mg/dL (Neg-Trace); RBC,Urine 0-3 per hpf (0-3); Specific Gravity,Urine 1.023 (1.010-1.025); Squamous Epithelial Cell,Urine Few per hpf (None-Few); Urobilinogen,Urine Normal (Normal); WBC,Urine TNTC per hpf (0-3)
[2021-01-25 20:11] LABS: Influenza A PCR Negative (Negative); Influenza B PCR Negative (Negative); Resp. Syncytial Virus PCR Negative (Negative)
[2021-01-25] MEDS ORDERED: Piperacillin/Tazobactam 3.375 GM VIAL ONE (20:17)
[2021-01-25 20:22] LABS: SARS-CoV-2 by PCR (In House) Negative (Negative)
[2021-01-25] MEDS ORDERED: Naloxone 0.4 MG/ML INJ IVP PRN (20:44)
[2021-01-25] MEDS ORDERED: *HR* HYDROcodone/Acet 5/325 mg TABLET PO PRN (20:44)
[2021-01-25] MEDS ORDERED: *HR* Promethazine 25 MG/ML VIAL IM PRN (20:44)
[2021-01-25] MEDS ORDERED: Melatonin 3 MG TABLET PO PRN (20:44)
[2021-01-25] MEDS ORDERED: Acetaminophen 325 MG TABLET PO PRN (20:44)
[2021-01-25] MEDS ORDERED: *HR* LORazepam 2 MG/ML VIAL IVP PRN ×3 (21:07)
[2021-01-25] MEDS: 0.9 % Sodium Chloride 1,000 ML IVC SCH (23:08)
[2021-01-26] MEDS: Ipratropium/Albuterol Neb 3 ML IH SCH ×2 (00:17→04:01)
[2021-01-26 06:09] LABS: Hematocrit 35.3 % (37.5-50.1); Hemoglobin 11.7 g/dL (12.9-16.9); Lymphocytes # 0.4 K/mcL (0.6-4.6); Mean Corpuscular HGB Conc 33.1 g/dL (31.6-35.5); Mean Corpuscular Hemoglobin 30.9 pg (28.0-33.3); Mean Corpuscular Volume 93.1 fL (83.0-100.0); Mean Platelet Volume 11.6 fL (9.4-12.4); Platelet Count 122 K/mcL (140-400); Red Blood Count 3.79 M/mcL (4.19-5.50); Red Cell Distribution Width 14.5 % (11.5-14.5); White Blood Count 9.5 K/mcL (4.3-11.1)
[2021-01-26 06:12] LABS: Calcium 8.4 mg/dL (8.6-10.3); Magnesium 2.4 mg/dL (1.6-2.6); Phosphorous 4.7 mg/dL (2.7-4.5); Potassium 3.6 mEq/L (3.5-5.1)
[2021-01-26 06:53] LABS: Prothrombin Time 11.3 Seconds (9.4-12.1)
[2021-01-26 07:13] LABS: Acinetobacter baumannii by PCR Not Detected (Not Detect); Enterobacter cloacae Cmplx PCR Not Detected (Not Detect); Enterococcus by PCR Not Detected (Not Detect); Staphylococcus aureus by PCR Not Detected (Not Detect); Staphylococcus by PCR Not Detected (Not Detect); Streptococcus agalactiae(B)PCR Not Detected (Not Detect); Streptococcus by PCR Not Detected (Not Detect); Streptococcus pneumoniae PCR Not Detected (Not Detect); Streptococcus pyogenes (A) PCR Not Detected (Not Detect); blaKPC Carbapenem-Resist Gene Not Detected (Not Detect)
[2021-01-26 07:16] LABS: Candida albicans by PCR Not Detected (Not Detect); Candida glabrata by PCR Not Detected (Not Detect); Candida krusei by PCR Not Detected (Not Detect); Candida parapsilosis by PCR Not Detected (Not Detect); Candida tropicalis by PCR Not Detected (Not Detect); Escherichia coli by PCR DETECTED (Not Detect); Klebsiella oxytoca by PCR Not Detected (Not Detect); Klebsiella pneumoniae by PCR Not Detected (Not Detect); Proteus by PCR Not Detected (Not Detect); Pseudomonas aeruginosa by PCR Not Detected (Not Detect); Serratia marcescens by PCR Not Detected (Not Detect)
[2021-01-26 08:06] LABS: Monocytes # 0.8 K/mcL (0.0-1.3); Neutrophils # 8.4 K/mcL (1.6-8.9); Platelet Estimate Decreased (Normal)
[2021-01-26 08:07] LABS: Anisocytosis 1+ (Not Present); Microcytosis Present (Not Present)
[2021-01-26] MEDS: cefTRIAXone 2,000 MG in 0.9 % Sodium Chloride Mini Bag 100 ML IVPB SCH (08:53)
[2021-01-26] MEDS: Thiamine (B-1) 100 MG TABLET PO SCH (08:53)
[2021-01-26] MEDS: Vitamin B Complex/Vit C/Vit E 1 EACH TABLET PO SCH (08:53)
[2021-01-26] MEDS: Chlorhexidine Rinse 15 ML MOUTHWASH MM SCH ×2 (08:53→21:00)
[2021-01-26] MEDS: Aspirin Enteric Coated 81 MG Tablet PO SCH (08:53)
[2021-01-26] MEDS: Folic Acid 1 MG TABLET PO SCH (08:53)
[2021-01-26] MEDS: Lactobacillus 1 EACH CAP.SPRINK PO SCH ×2 (08:53→21:56)
[2021-01-26] MEDS: 0.9 % Sodium Chloride 1,000 ML IVC SCH (08:54)
[2021-01-26] MEDS: Budesonide/Formoterol 160/4.5 1 PUFF INH IH SCH ×2 (10:48→21:39)
[2021-01-26] MEDS: Albuterol 2.5 MG/3 ML NEBULIZER IH SCH ×3 (10:48→21:38)
[2021-01-26] MEDS: Tiotropium 10 INH DOSE IH SCH (10:49)
[2021-01-26] MEDS ORDERED: *HR* Metoprolol 5 MG/5 ML VIAL IVP ONE (23:00)
[2021-01-27] MEDS: Fluticasone Propionate Nasal 50 MCG/SPRAY BOTTLE NS SCH ×2 (00:16→20:37)
[2021-01-27] MEDS: Albuterol 2.5 MG/3 ML NEBULIZER IH SCH ×4 (03:39→20:43)
[2021-01-27] MEDS: Budesonide/Formoterol 160/4.5 1 PUFF INH IH SCH ×2 (08:46→20:43)
[2021-01-27] MEDS: Tiotropium 10 INH DOSE IH SCH (08:46)
[2021-01-27] MEDS: Patient Taking Own Medication 1 EACH PO SCH ×2 (08:49→21:07)
[2021-01-27] MEDS: Thiamine (B-1) 100 MG TABLET PO SCH (08:53)
[2021-01-27] MEDS: Folic Acid 1 MG TABLET PO SCH (08:53)
[2021-01-27] MEDS: cefTRIAXone 2,000 MG in 0.9 % Sodium Chloride Mini Bag 100 ML IVPB SCH (08:53)
[2021-01-27] MEDS: Lactobacillus 1 EACH CAP.SPRINK PO SCH ×2 (08:53→20:38)
[2021-01-27] MEDS: Chlorhexidine Rinse 15 ML MOUTHWASH MM SCH ×2 (08:53→20:38)
[2021-01-27] MEDS: Vitamin B Complex/Vit C/Vit E 1 EACH TABLET PO SCH (08:53)
[2021-01-27] MEDS: Aspirin Enteric Coated 81 MG Tablet PO SCH (08:53)
[2021-01-27] MEDS: Multivit/Ca/Min/Fe/FA 1 TAB TABLET PO SCH (08:53)
[2021-01-27] MEDS ORDERED: *HR* Metoprolol 5 MG/5 ML VIAL IVP PRN (10:26)
[2021-01-27] MEDS: 0.9 % Sodium Chloride w KCl 20 MEQ/1,000 ML MLS IVC SCH (17:12)
[2021-01-27 17:18] LABS: Hemoglobin 11.7 g/dL (12.9-16.9); Immature Platelets 6.4 % (1.1-6.1); Mean Corpuscular HGB Conc 33.4 g/dL (31.6-35.5); Mean Corpuscular Hemoglobin 30.7 pg (28.0-33.3); Mean Corpuscular Volume 91.9 fL (83.0-100.0); Mean Platelet Volume 11.8 fL (9.4-12.4); Red Blood Count 3.81 M/mcL (4.19-5.50); Red Cell Distribution Width 14.4 % (11.5-14.5); White Blood Count 6.3 K/mcL (4.3-11.1)
[2021-01-27 17:23] LABS: BUN/Creatinine Ratio 22 (6-26); Blood Urea Nitrogen 29 mg/dL (8-23); Calcium 8.7 mg/dL (8.6-10.3); Carbon Dioxide 24 mEq/L (23-29); Chloride 106 mEq/L (98-107); Glucose 115 mg/dL (70-105); Osmolality,Calculated 289 (280-300); Potassium 3.8 mEq/L (3.5-5.1); Sodium 136 mEq/L (136-145); eGFR For African Americans > 60 (> 60); eGFR For Non-African Americans 53 (> 60)
[2021-01-28] MEDS: Albuterol 2.5 MG/3 ML NEBULIZER IH SCH ×4 (03:32→20:32)
[2021-01-28 04:09] LABS: Hematocrit 33.3 % (37.5-50.1); Hemoglobin 11.4 g/dL (12.9-16.9); Mean Corpuscular HGB Conc 34.2 g/dL (31.6-35.5); Mean Corpuscular Hemoglobin 31.1 pg (28.0-33.3); Mean Corpuscular Volume 90.7 fL (83.0-100.0); Mean Platelet Volume 11.3 fL (9.4-12.4); Platelet Count 118 K/mcL (140-400); Red Blood Count 3.67 M/mcL (4.19-5.50); Red Cell Distribution Width 14.1 % (11.5-14.5); White Blood Count 6.4 K/mcL (4.3-11.1)
[2021-01-28 04:26] LABS: BUN/Creatinine Ratio 22 (6-26); Blood Urea Nitrogen 23 mg/dL (8-23); Carbon Dioxide 21 mEq/L (23-29); Chloride 107 mEq/L (98-107); Glucose 108 mg/dL (70-105); Osmolality,Calculated 284 (280-300); Potassium 3.7 mEq/L (3.5-5.1); Sodium 135 mEq/L (136-145); eGFR For African Americans > 60 (> 60); eGFR For Non-African Americans > 60 (> 60)
[2021-01-28] MEDS: 0.9 % Sodium Chloride w KCl 20 MEQ/1,000 ML MLS IVC SCH ×2 (04:41→16:32)
[2021-01-28] MEDS: cefTRIAXone 2,000 MG in 0.9 % Sodium Chloride Mini Bag 100 ML IVPB SCH (08:32)
[2021-01-28] MEDS: Lactobacillus 1 EACH CAP.SPRINK PO SCH ×2 (08:33→21:43)
[2021-01-28] MEDS: Vitamin B Complex/Vit C/Vit E 1 EACH TABLET PO SCH (08:33)
[2021-01-28] MEDS: Thiamine (B-1) 100 MG TABLET PO SCH (08:33)
[2021-01-28] MEDS: Multivit/Ca/Min/Fe/FA 1 TAB TABLET PO SCH (08:34)
[2021-01-28] MEDS: Aspirin Enteric Coated 81 MG Tablet PO SCH (08:34)
[2021-01-28] MEDS: Folic Acid 1 MG TABLET PO SCH (08:34)
[2021-01-28] MEDS: Patient Taking Own Medication 1 EACH PO SCH ×2 (08:35→23:14)
[2021-01-28] MEDS: allopurinoL 100 MG TABLET PO SCH ×2 (09:49→21:43)
[2021-01-28] MEDS: Tiotropium 10 INH DOSE IH SCH (10:04)
[2021-01-28] MEDS: Budesonide/Formoterol 160/4.5 1 PUFF INH IH SCH ×2 (10:04→20:34)
[2021-01-28] MEDS: Fluticasone Propionate Nasal 50 MCG/SPRAY BOTTLE NS SCH (21:43)
[2021-01-29] MEDS: 0.9 % Sodium Chloride w KCl 20 MEQ/1,000 ML MLS IVC SCH ×2 (01:13→08:57)
[2021-01-29 01:35] LABS: Hematocrit 35.1 % (37.5-50.1); Hemoglobin 11.5 g/dL (12.9-16.9); Mean Corpuscular HGB Conc 32.8 g/dL (31.6-35.5); Mean Corpuscular Hemoglobin 30.2 pg (28.0-33.3); Mean Corpuscular Volume 92.1 fL (83.0-100.0); Platelet Count 135 K/mcL (140-400); Red Blood Count 3.81 M/mcL (4.19-5.50); Red Cell Distribution Width 14.4 % (11.5-14.5); White Blood Count 7.7 K/mcL (4.3-11.1)
[2021-01-29 01:49] LABS: BUN/Creatinine Ratio 16 (6-26); Blood Urea Nitrogen 17 mg/dL (8-23); Calcium 8.3 mg/dL (8.6-10.3); Carbon Dioxide 19 mEq/L (23-29); Chloride 108 mEq/L (98-107); Glucose 130 mg/dL (70-105); Osmolality,Calculated 285 (280-300); Potassium 3.7 mEq/L (3.5-5.1); Sodium 136 mEq/L (136-145); eGFR For African Americans > 60 (> 60); eGFR For Non-African Americans > 60 (> 60)
[2021-01-29] MEDS: Albuterol 2.5 MG/3 ML NEBULIZER IH SCH ×4 (04:00→23:08)
[2021-01-29] MEDS: cefTRIAXone 2,000 MG in 0.9 % Sodium Chloride Mini Bag 100 ML IVPB SCH (08:55)
[2021-01-29] MEDS: Folic Acid 1 MG TABLET PO SCH (08:57)
[2021-01-29] MEDS: Thiamine (B-1) 100 MG TABLET PO SCH (08:57)
[2021-01-29] MEDS: Multivit/Ca/Min/Fe/FA 1 TAB TABLET PO SCH (08:57)
[2021-01-29] MEDS: Aspirin Enteric Coated 81 MG Tablet PO SCH (08:57)
[2021-01-29] MEDS: Patient Taking Own Medication 1 EACH PO SCH ×2 (08:57→20:45)
[2021-01-29] MEDS: Lactobacillus 1 EACH CAP.SPRINK PO SCH ×2 (08:57→20:43)
[2021-01-29] MEDS: allopurinoL 100 MG TABLET PO SCH ×2 (08:57→20:43)
[2021-01-29] MEDS: Vitamin B Complex/Vit C/Vit E 1 EACH TABLET PO SCH (08:57)
[2021-01-29] MEDS: Tiotropium 10 INH DOSE IH SCH (10:41)
[2021-01-29] MEDS: Budesonide/Formoterol 160/4.5 1 PUFF INH IH SCH ×2 (10:41→23:08)
[2021-01-29] MEDS: Fluticasone Propionate Nasal 50 MCG/SPRAY BOTTLE NS SCH (20:46)
[2021-01-30 01:14] LABS: Hematocrit 36.1 % (37.5-50.1); Hemoglobin 11.9 g/dL (12.9-16.9); Mean Corpuscular Hemoglobin 30.2 pg (28.0-33.3); Mean Corpuscular Volume 91.6 fL (83.0-100.0); Mean Platelet Volume 10.5 fL (9.4-12.4); Platelet Count 148 K/mcL (140-400); Red Blood Count 3.94 M/mcL (4.19-5.50); Red Cell Distribution Width 14.3 % (11.5-14.5); White Blood Count 8.2 K/mcL (4.3-11.1)
[2021-01-30 01:34] LABS: BUN/Creatinine Ratio 14 (6-26); Blood Urea Nitrogen 14 mg/dL (8-23); Calcium 8.5 mg/dL (8.6-10.3); Carbon Dioxide 21 mEq/L (23-29); Chloride 106 mEq/L (98-107); Glucose 91 mg/dL (70-105); Osmolality,Calculated 282 (280-300); Potassium 3.8 mEq/L (3.5-5.1); Sodium 136 mEq/L (136-145); eGFR For African Americans > 60 (> 60); eGFR For Non-African Americans > 60 (> 60)
[2021-01-30] MEDS: Albuterol 2.5 MG/3 ML NEBULIZER IH SCH ×4 (04:08→20:43)
[2021-01-30] MEDS: Patient Taking Own Medication 1 EACH PO SCH (09:14)
[2021-01-30] MEDS: Multivit/Ca/Min/Fe/FA 1 TAB TABLET PO SCH (09:24)
[2021-01-30] MEDS: allopurinoL 100 MG TABLET PO SCH ×2 (09:24→20:01)
[2021-01-30] MEDS: Aspirin Enteric Coated 81 MG Tablet PO SCH (09:24)
[2021-01-30] MEDS: Vitamin B Complex/Vit C/Vit E 1 EACH TABLET PO SCH (09:25)
[2021-01-30] MEDS: cefTRIAXone 2,000 MG in 0.9 % Sodium Chloride Mini Bag 100 ML IVPB SCH (09:25)
[2021-01-30] MEDS: Thiamine (B-1) 100 MG TABLET PO SCH (09:25)
[2021-01-30] MEDS: Lactobacillus 1 EACH CAP.SPRINK PO SCH ×2 (09:25→20:01)
[2021-01-30] MEDS: Folic Acid 1 MG TABLET PO SCH (09:25)
[2021-01-30] MEDS: Tiotropium 10 INH DOSE IH SCH (10:04)
[2021-01-30] MEDS: Budesonide/Formoterol 160/4.5 1 PUFF INH IH SCH ×2 (10:04→20:44)
[2021-01-30] MEDS: Metoprolol XL (24 HR) Succ 50 MG TAB.ER.24H PO SCH (15:04)
[2021-01-30] MEDS: Fluticasone Propionate Nasal 50 MCG/SPRAY BOTTLE NS SCH (20:02)
[2021-01-31 02:40] LABS: Hemoglobin 12.1 g/dL (12.9-16.9); Mean Corpuscular HGB Conc 32.7 g/dL (31.6-35.5); Mean Corpuscular Hemoglobin 29.7 pg (28.0-33.3); Mean Corpuscular Volume 90.7 fL (83.0-100.0); Mean Platelet Volume 10.6 fL (9.4-12.4); Platelet Count 235 K/mcL (140-400); Red Blood Count 4.08 M/mcL (4.19-5.50); Red Cell Distribution Width 14.2 % (11.5-14.5); White Blood Count 8.9 K/mcL (4.3-11.1)
[2021-01-31 02:55] LABS: BUN/Creatinine Ratio 18 (6-26); Blood Urea Nitrogen 18 mg/dL (8-23); Calcium 9.2 mg/dL (8.6-10.3); Carbon Dioxide 24 mEq/L (23-29); Chloride 104 mEq/L (98-107); Glucose 90 mg/dL (70-105); Osmolality,Calculated 285 (280-300); Potassium 4.1 mEq/L (3.5-5.1); Sodium 137 mEq/L (136-145); eGFR For African Americans > 60 (> 60); eGFR For Non-African Americans > 60 (> 60)
[2021-01-31] MEDS: Albuterol 2.5 MG/3 ML NEBULIZER IH SCH ×3 (04:07→16:36)
[2021-01-31] MEDS: Thiamine (B-1) 100 MG TABLET PO SCH (09:14)
[2021-01-31] MEDS: Vitamin B Complex/Vit C/Vit E 1 EACH TABLET PO SCH (09:14)
[2021-01-31] MEDS: Aspirin Enteric Coated 81 MG Tablet PO SCH (09:14)
[2021-01-31] MEDS: Metoprolol XL (24 HR) Succ 50 MG TAB.ER.24H PO SCH (09:14)
[2021-01-31] MEDS: allopurinoL 100 MG TABLET PO SCH (09:14)
[2021-01-31] MEDS: Folic Acid 1 MG TABLET PO SCH (09:14)
[2021-01-31] MEDS: Multivit/Ca/Min/Fe/FA 1 TAB TABLET PO SCH (09:14)
[2021-01-31] MEDS: Lactobacillus 1 EACH CAP.SPRINK PO SCH (09:14)
[2021-01-31] MEDS: cefTRIAXone 2,000 MG in 0.9 % Sodium Chloride Mini Bag 100 ML IVPB SCH (09:14)
[2021-01-31] MEDS: Tiotropium 10 INH DOSE IH SCH (10:42)
[2021-01-31] MEDS: Budesonide/Formoterol 160/4.5 1 PUFF INH IH SCH (10:48)
[2021-01-31 14:24] VITALS: BP 131/69; PULSE 82; TEMP 98.5
[2021-01-31 14:34] VITALS: O2SAT 94
[2021-01-31 16:48] LABS: Hematocrit 40.7 % (37.5-50.1); Hemoglobin 13.5 g/dL (12.9-16.9)
== END 2021-01-31 16:50 | disposition home health service (06) | DRG 872 ==
LOC: EMEROOARM 16:16 → 3ANU 16:16 → SUATTDRO 19:37 → 3ANU 20:23 → SUATTDRO 21:10
PROVIDERS: ADMIT Family Medicine; ATTEND Family Medicine